=== PATIENT | female | born 1955 | race African-American/Black ===

== ENCOUNTER 2017-08-31 08:03 | Outpatient (CLI) | payer SELFPAY ==
--- NOTE | 2017-09-05 09:22 | MMO ---
BILATERAL SCREENING MAMMOGRAM: Date: 08/31/17 HISTORY: 62-year-old female. Routine screening mammography. COMPARISON: 07/29/15, 07/02/14, 06/22/13. TECHNIQUE: CC and MLO views of both breasts are submitted for interpretation. This patient's mammogram was reviewed with the assistance of computer-aided detection. FINDINGS: The breasts are composed of scattered fibroglandular tissue. Bilaterally, no suspicious dominant mass , architectural distortion, or suspicious calcifications. Bilateral benign-appearing calcifications a re present. IMPRESSION: BIRADS 2: Benign Finding(s) RECOMMENDATION: Annual mammogram. POS: ANASTASIYA
== END 2017-08-31 08:04 | disposition home or self-care (01) ==
LOC: SCSMAMMO 08:03
PROVIDERS: ATTEND Family Medicine
DX: Z12.31 Encounter for screening mammogram for malignant neoplasm of breast (principal)
CPT/HCPCS: 77067

== ENCOUNTER 2019-06-21 09:34 | Emergency (ER) | payer MEDICARE ==
[2019-06-21] MEDS ORDERED: Famotidine 20 MG TAB ONE (10:32)
[2019-06-21] MEDS ORDERED: diphenhydrAMINE 25 MG CAP ONE (10:32)
[2019-06-21] MEDS ORDERED: predniSONE 20 MG TAB ONE (10:32)
== END 2019-06-21 11:28 | disposition home or self-care (01) ==
LOC: ERS 09:34
DX: M79.89 Other specified soft tissue disorders (principal); R22.0 Localized swelling, mass and lump, head; T44.7X5A Adverse effect of beta-adrenoreceptor antagonists, initial encounter; I10 Essential (primary) hypertension; Z79.899 Other long term (current) drug therapy
CPT/HCPCS: 99283; J7512; Q0163

== ENCOUNTER 2019-11-29 10:00 | Outpatient (CLI) | payer MEDICARE ==
--- NOTE | 2019-11-29 12:59 | MMO ---
Bilateral MAMMO Bilat Screen [facility]DI[facility]N. CLINICAL HISTORY: Patient is 64 years old and is seen for screening. The patient has the following family history of breast cancer: sister, at age 58. The patient has no personal history of cancer. VIEWS: The views performed were: bilateral craniocaudal with tomosynthesis and bilateral mediolateral oblique with tomosynthesis. FILMS COMPARED: The present examination has been compared to prior imaging studies performed at [facility] on 06/21/2012, 06/22/2013, 07/02/2014 and 07/29/2015. This study has been interpreted with the assistance of computer-aided detection. MAMMOGRAM FINDINGS: There are scattered fibroglandular densities. There are stable benign appearing calcifications seen in both breasts. There are no suspicious masses, suspicious calcifications, or new areas of architectural distortion. IMPRESSION: THERE IS NO MAMMOGRAPHIC EVIDENCE OF MALIGNANCY. A ROUTINE FOLLOW-UP MAMMOGRAM IN 1 YEAR IS RECOMMENDED. THE RESULTS OF THIS EXAM WERE SENT TO THE PATIENT. ACR BI-RADS Category 2 - Benign finding MAMMOGRAPHY NOTE: 1. A negative mammogram report should not delay a biopsy if a dominant of clinically suspicious mass is present. 2. Approximately 10% to 15% of breast cancers are not detected by mammography. 3. Adenosis and dense breasts may obscure an underlying neoplasm. Reported by: ROB ALEMAN MD Electonically Signed: [id number]
--- NOTE | 2019-11-29 13:16 | BD ---
DEXA BONE DENSITY STUDY: HISTORY: Postmenopausal. FINDINGS: Lumbar Spine: BMD (g/cm2) L1 1.025 T-Score: +0.3 L2 1.103 T-Score: +0.7 L3 1.048 T-Score: -0.3 L4 1.194 T-Score: +1.2 L1-L4 1.098 T-Score: +0.5 Femoral Neck: 0.749 T-Score: -0.9 Total Femur: 1.047 T-Score: +0.9 Impression: Normal bone mineral density of the left femoral neck and lumbar spine. POS: SAAD
== END 2019-11-29 10:01 | disposition home or self-care (01) ==
LOC: BICMAMMO 10:00
PROVIDERS: ATTEND Family Medicine
DX: Z12.31 Encounter for screening mammogram for malignant neoplasm of breast (principal); Z13.820 Encounter for screening for osteoporosis; Z78.0 Asymptomatic menopausal state; Z80.3 Family history of malignant neoplasm of breast
CPT/HCPCS: 77063; 77067; 77080

== ENCOUNTER 2019-12-20 05:41 | Outpatient (CLI) | payer MEDICARE, OTHER ==
[2019-12-20 18:13] LABS: Hemoglobin 13.2 g/dL (12.0-16.0); Mean Corpuscular HGB CONC 32.6 g/dL (32.0-36.0); Mean Corpuscular Hemoglobin 30.2 pg (27.0-31.0); Mean Corpuscular Volume 92.8 fL (78.0-98.0); Mean Platelet Volume 8.4 fL (7.4-10.4); Platelet Count 320 thou/uL (130-400); RBC Distribution Width 14.5 % (11.5-14.5); Red Blood Cell (RBC) Count 4.35 mill/uL (4.20-5.40); White Blood Cell (WBC) Count 10.1 thou/uL (4.8-10.8)
[2019-12-21 14:12] LABS: SARS-CoV-2 MS2 Positive; SARS-CoV-2 N Gene Negative; SARS-CoV-2 S Gene Negative; SARS-CoV-2 orf1ab Negative
--- NOTE | 2019-12-24 10:11 | EKG ---
Test Reason : FOR Blood Pressure : / mmHG Vent. Rate : 064 BPM Atrial Rate : 064 BPM P-R Int : 154 ms QRS Dur : 096 ms QT Int : 404 ms P-R-T Axes : 041 -17 020 degrees QTc Int : 416 ms Normal sinus rhythm Normal ECG No previous ECGs available Confirmed by TOM ARAMBULA (2) on 12/24/2019 10:11:17 AM Referred By: ELIZABET Confirmed By:TOM ARAMBULA
== END 2019-12-20 05:42 | disposition home or self-care (01) ==
LOC: LABBT 05:41
PROVIDERS: ATTEND Obstetrics & Gynecology
DX: Z01.818 Encounter for other preprocedural examination (principal); Z11.59 Encounter for screening for other viral diseases; N95.0 Postmenopausal bleeding
CPT/HCPCS: 85027; 93005; U0003; 87635; 93010

== ENCOUNTER 2019-12-25 06:05 | Day surgery (SDC) | payer MEDICARE ==
[2019-12-19 10:48] VITALS: BMI 37.5
[2019-12-25] MEDS ORDERED: Midazolam HCl 2 mg/2 ml Vial ONE (06:19)
[2019-12-25] MEDS ORDERED: Fentanyl 250 MCG/5 ML VIAL ONE (06:19)
[2019-12-25] MEDS ORDERED: Famotidine/PF 20 mg/2ml Vial ONE ×2 (06:20→06:24)
[2019-12-25] MEDS ORDERED: CeleCOXIB 100 MG CAP ONE (06:24)
[2019-12-25] MEDS ORDERED: Gabapentin 300 MG CAP ONE (06:24)
[2019-12-25] MEDS ORDERED: Bupivacaine PF 0.5% 30 ML VIAL ONE (06:43)
[2019-12-25] MEDS ORDERED: Lidocaine 1% w/Epinephrine 1:100K 20 ML VIAL ONE (06:43)
--- NOTE | 2019-12-25 06:51 | HP ---
REASON FOR ADMISSION: Postmenopausal bleeding with leiomyoma uteri, scheduled for BSO. HISTORY OF PRESENT ILLNESS: Ms. Jensen is a 64-year-old, 5, para 3, AB2, x3 with postmenopausal bleeding, thickened endometrium endometrium. Ultrasound revealed a uterus with approximately 550 mL total volume with multiple leiomyoma uteri. She desires definitive surgical management. 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 Negative Pap, negative EMB. MEDICAL HISTORY: Significant for PAST SURGICAL HISTORY: None. MEDICATIONS: 1. Amlodipine. 2. Losartan. 3. Metoprolol. 4. Pravastatin. 5. Provera. 6. . SOCIAL HISTORY: Denies tobacco, alcohol, or IV drug abuse. REVIEW OF SYSTEMS: Noncontributory. PHYSICAL EXAMINATION: GENERAL: Black female, 5 feet 3 inches, weight 194, BMI 34.4. Blood pressure 130/86, pulse , and temperature 98.8 HEENT: Within normal limits. LUNGS: Clear to auscultation bilaterally. HEART: Regular rhythm. BREASTS: No masses bilaterally. ABDOMEN: Soft, nontender. No rebound or guarding. Vulva without lesions. Vagina without discharge. Cervix, parous. Uterus, anteverted, 10-week size. Adnexa, no masses bilaterally. EXTREMITIES: Without clubbing, cyanosis, or edema. LABORATORY DATA: Pap negative postmenopausal, no atypia. IMPRESSION: Postmenopausal bleeding with multiple leiomyoma uteri. PLAN: Total laparoscopic hysterectomy, bilateral salpingo-oophorectomy, GelPOINT bag retrieval. We will administer appropriate antibiotic and DVT prophylaxis on 12/25/2019. Job ID: [id number]
[2019-12-25] MEDS ORDERED: cloNIDine 0.1 MG TAB PO PRN (09:35)
[2019-12-25] MEDS ORDERED: Simethicone Chewable 80 MG TAB PO PRN (09:35)
[2019-12-25] MEDS ORDERED: Morphine 4 MG/ML VIAL SLOW IVP PRN (09:35)
[2019-12-25] MEDS ORDERED: Ondansetron PF 4 MG/2 ML Vial IVP PRN (09:35)
[2019-12-25] MEDS ORDERED: traMADol HCl 50 MG TAB PO PRN (09:35)
[2019-12-25] MEDS ORDERED: HYDROcodone/Acetaminophen 5/325 mg Tablet PO PRN ×2 (09:35)
[2019-12-25] MEDS ORDERED: Promethazine HCl 25 MG/ML VIAL IM PRN ×2 (09:35→09:55)
[2019-12-25] MEDS ORDERED: diphenhydrAMINE 25 MG CAP PO PRN (09:35)
[2019-12-25] MEDS ORDERED: Zolpidem Tartrate 5 MG TAB PO PRN (09:35)
[2019-12-25] MEDS ORDERED: Promethazine HCl 25 MG/ML VIAL SLOW IVP PRN (09:55)
[2019-12-25] MEDS ORDERED: Ondansetron HCl/PF 4 MG/2 ML Vial IVP PRN (09:55)
--- NOTE | 2019-12-25 10:31 | OP ---
DATE OF PROCEDURE: 12/25/2019 PREOPERATIVE DIAGNOSIS: Large uterine fibroids with postmenopausal bleeding, benign endometrial biopsy. POSTOPERATIVE DIAGNOSIS: Large uterine fibroids with postmenopausal bleeding, benign endometrial biopsy. PROCEDURES PERFORMED: Total laparoscopic hysterectomy with bilateral salpingo-oophorectomy, intracorporeal GelPOINT retrieval bag morcellation. SALES AGENT PROTECTIVE SERVICE: Precious Watson PA-C ANESTHESIA: General endotracheal. ESTIMATED BLOOD LOSS: 150 mL. COMPLICATIONS: None. DRAINS: Jain to gravity with approximately 600 mL clear urine. MEDICATIONS: 2 g Ancef preincision. DVT PROPHYLAXIS: SCDs. OPERATIVE FINDINGS: 1. Approximately 14 to 16-week size uterus with multiple leiomyoma uteri. 2. Normal-appearing tubes and ovaries bilaterally with dense adhesions of the right ovary to the posterior aspect of the uterus. 3. Hemostasis, clear urine. COUNTS: Correct at the end of the procedure. DISPOSITION: Recovery room in good condition. DESCRIPTION OF PROCEDURE: After obtaining appropriate informed consent, the patient was taken to the operating room, where general endotracheal anesthesia was achieved without difficulty. She was prepped and draped in dorsal lithotomy in [facility]. Sliding speculum was placed in vagina. Cervix was identified and grasped with single-toothed tenaculum. Uterus sounded to 14 cm. Jain catheter had been placed with clear urine 450 mL drained. This was hooked up to a 60 mL syringe. ILA manipulator with a 12 cm obturator and a 3.5 cm vaginal creasing machine operator was placed without difficulty. Tenaculum and speculum were removed. Digital Marketing Associate changed his gloves, turned attention to abdominal portion of the procedure. A 5 mL of Marcaine injected 2.5 to 3 cm above the umbilicus, and a 12 mm skin incision was made. The fat was dissected off the fascia bluntly with the dicer machine operator's fingers, and the Veress needle was introduced in the abdominal cavity. Insufflation was carried out with carbon dioxide at max pressure of 15, volume approximately 3.5 L. Once this was done, a 12 mm non-cutting trocar was placed into the abdominal cavity. The operative findings were noted. The patient was placed in Trendelenburg position. The right and left lateral da Benjy ports were placed lateral to the epigastric vessels, and an business office assistant 11 mm port was placed in the right upper quadrant. The umbilical trocar was removed, and the fascial incision at this level was extended to approximately 2.5 to 3 cm in length. The small Mark O was placed inside the GelPOINT was placed over this for pneumoperitoneum and maintained insufflation after placing a retrieval bag in the patient's left upper quadrant with the dicer machine operator's fingers. Da Benjy robot was docked with monopolar scissors in the right hand and bipolar fenestrated forceps in the left. The infundibulopelvic ligament and ureter on the left were identified. The IP was coagulated, transected, carried through the broad and the round down to the level of internal cervical os. The vesicouterine peritoneum was incised sharply anteriorly and dissected off the lower uterine segment, cervix, and upper vagina, pushing the bladder down as well. The bladder was backfilled and easily identified. Skeletonization of the uterine vessels which were significant on the left was carried out. These were coagulated and transected down to the level of the vaginal apex. Attention was turned to the patient's right. The fallopian tube was noted to be densely stuck almost down to the level of the uterosacral ligament on the right, and this was taken down using monopolar scissors with the ureter noted to be well lateral. Once this was freed, the round ligament was coagulated and transected. Coming back through the broad ligament to the infundibulopelvic, which was coagulated and transected, then opening the broad ligament, uterine vessels were skeletonized and coagulated. After completing the incision of the vesicouterine peritoneal fold and dissecting the bladder off the cervix and upper vagina, skeletonization, coagulation, and transection of the uterine vessels were carried down all the way to the level of the upper vagina. The vagina was entered at 12 to 3 and 12 to 9, then from 3 to 6 and from 9 to 6 amputating the specimen. Balloon was pulled down on the 12 cm obturator on the ILA, and the uterus was placed in the upper abdomen. Pneumoperitoneum was maintained by taking the balloon off the cuff of the ILA and inserting it into the vagina. Hemostasis was achieved using bipolar cautery around the cuff. Bladder was backfilled and well identified. The cuff was closed using a running continuous 2-0 PDS Stratafix running from right to left and then back to right in a 2-layer closure technique. Good hemostasis was noted throughout. Suction irrigation was carried out. Good hemostasis was noted in all surgical pedicles. Tisseel was applied across all surgical pedicles. The retrieval bag was pulled into the pelvis, and the stay sutures were removed. The uterine specimen was put into the retrieval bag, and the string was grasped and pulled out to the GelPOINT. At this point in time, the da Benjy instruments were removed and the da Benjy was undocked. The patient was leveled out. The dicer machine operator changed his gloves, and rescrubbed in. The retrieval bag was pulled out to the mouth of the small Mark O with the uterus noted to be inside. The uterus was elevated using Alyssia thyroid clamps and using an 11 blade serial morcellation, removed the entire specimen without trauma to the underlying viscera. Once this was done, the Mark O was removed. The trocars had already been removed. The fascia at the level of the small Mark O just above the umbilicus was grasped along its margins and closed using 0 Vicryl on a UR5 needle. Skin was reapproximated x4 using 4-0 Monocryl and Dermabond. Vagina inspected, noted to be dry. Clear urine noted. The patient was awakened, extubated, and taken to recovery room in good condition. Job ID: [id number]
[2019-12-25] MEDS ORDERED: PROPOFOL 200 MG/20 ML VIAL ONE (12:38)
[2019-12-25] MEDS ORDERED: Dexamethasone 20 MG/5 ML VIAL ONE (12:38)
[2019-12-25] MEDS ORDERED: Glycopyrrolate 0.2 MG/ML 5 ML SYRINGE ONE (12:38)
[2019-12-25] MEDS ORDERED: Rocuronium Bromide 10 MG/ML (10ML VIAL) ONE (12:38)
[2019-12-25] MEDS ORDERED: Lidocaine 1% PF 5 ML VIAL ONE (12:38)
[2019-12-25] MEDS ORDERED: EPHEDRINE 25 MG/5 ML SYRINGE ONE (12:38)
[2019-12-25] MEDS ORDERED: Ondansetron PF 4 MG/2 ML Vial ONE (12:38)
[2019-12-25] MEDS: Ketorolac Tromethamine 30 MG/ML VIAL IVP SCH ×2 (13:21→18:14)
[2019-12-25] MEDS: Sodium Chloride 0.9% 1,000 ML IV SCH ×2 (13:24→18:15)
[2019-12-25] MEDS ORDERED: Atorvastatin Calcium 10 MG TAB PO SCH (21:00)
[2019-12-25] MEDS: Docusate 100 MG CAP PO SCH (21:40)
[2019-12-25] MEDS: Metoprolol Tartrate 100 MG TAB PO SCH (21:40)
[2019-12-26] MEDS: Ketorolac Tromethamine 30 MG/ML VIAL IVP SCH (00:41)
[2019-12-26] MEDS: Sodium Chloride 0.9% 1,000 ML IV SCH ×2 (05:30→08:26)
[2019-12-26] MEDS ORDERED: Ibuprofen 600 MG TAB PO SCH (06:00)
[2019-12-26 06:28] LABS: Hemoglobin 10.9 g/dL (12.0-16.0); Mean Corpuscular HGB CONC 33.9 g/dL (32.0-36.0); Mean Corpuscular Hemoglobin 31.3 pg (27.0-31.0); Mean Corpuscular Volume 92.3 fL (78.0-98.0); Mean Platelet Volume 7.6 fL (7.4-10.4); Platelet Count 230 thou/uL (130-400); RBC Distribution Width 14.1 % (11.5-14.5); Red Blood Cell (RBC) Count 3.49 mill/uL (4.20-5.40); White Blood Cell (WBC) Count 12.8 thou/uL (4.8-10.8)
[2019-12-26 08:06] VITALS: BP 132/64; TEMP 98.7
[2019-12-26] MEDS: Metoprolol Tartrate 100 MG TAB PO SCH (08:25)
[2019-12-26] MEDS: Docusate 100 MG CAP PO SCH (08:25)
--- NOTE | 2019-12-26 08:50 | DIS ---
DATE OF ADMISSION: 12/25/2019 DATE OF DISCHARGE: 12/26/2019 PRIMARY HOSPITAL PROCEDURE: Total laparoscopic hysterectomy with bilateral salpingo-oophorectomy and intracorporeal retrieval by morselization. SUMMARY OF HOSPITAL COURSE: The patient underwent the aforementioned procedure on the morning of 12/24. EBL was approximately 150 mL. Postoperatively, the patient did well with good urine output, voiding x4, tolerating p.o. and ambulating. This morning her temperature is 97.9, pulse 85, respirations 18, blood pressure 148/92. The patient has had occasional episodes of elevated blood pressures, treated with clonidine. She is on 3 antihypertensive at home. Temp max was 99.2. This resolved without Tylenol or other antipyretics. Hematocrit went from 40% preoperatively to 32% postoperatively, hydrated. PHYSICAL EXAMINATION: GENERAL: Exam reveals a black female, resting comfortably. No complaints. States her pain is much less than she would have anticipated. LUNGS: Clear to auscultation bilaterally. HEART: Regular rate and rhythm. ABDOMEN: Soft, nontender. Incisions intact. Perineum dry. EXTREMITIES: No clubbing, cyanosis, or edema. IMPRESSION: Doing well status post total abdominal hysterectomy with bilateral salpingo-oophorectomy. Pathology pending. PLAN: Discharge home. The patient has [place] prescribed preoperatively. She is to discontinue her Provera, which she was taking preoperatively and continue all of her other medications. She has scheduled followup at [facility] in 2 weeks and 6 weeks. We will follow up pathology. Job ID: [id number]
[2019-12-26] MEDS ORDERED: Amlodipine 10 MG TAB PO SCH (09:00)
[2019-12-26] MEDS ORDERED: Losartan 25 MG TAB PO SCH (09:00)
[2019-12-26] MEDS ORDERED: Cholecalciferol 1,000 UNITS (25 MCG) TAB PO SCH (09:00)
== END 2019-12-26 10:45 | disposition home or self-care (01) ==
LOC: SDC 06:05 → 3SE 09:31 → SDC 12-26 10:45
PROVIDERS: ATTEND Obstetrics & Gynecology
PROC: 0UT94ZZ Resection of Uterus, Percutaneous Endoscopic Approach (ICD-10-PCS; principal; 2019-12-25)
PROC: 0UT24ZZ Resection of Bilateral Ovaries, Percutaneous Endoscopic Approach (ICD-10-PCS; 2019-12-25)
PROC: 0UT74ZZ Resection of Bilateral Fallopian Tubes, Percutaneous Endoscopic Approach (ICD-10-PCS; 2019-12-25)
DX: D25.9 Leiomyoma of uterus, unspecified (principal); N73.6 Female pelvic peritoneal adhesions (postinfective); N83.312 Acquired atrophy of left ovary; N83.311 Acquired atrophy of right ovary; N95.0 Postmenopausal bleeding; Z79.899 Other long term (current) drug therapy; Z88.8 Allergy status to other drugs, medicaments and biological substances
CPT/HCPCS: 36415; 85027; 86850; 86900; 86901; 88307; J0690; J1100; J1885; J2001; J2250; J2405; J2704; J3010; S0020; S0028

== ENCOUNTER 2020-03-12 10:50 | Outpatient (CLI) | payer MEDICARE ==
--- NOTE | 2020-03-12 12:03 | RAD ---
LEFT FOOT 3 VIEWS: Date: 03/12/2020 HISTORY: Left foot pain, most prominent in the fifth metatarsal. FINDINGS/IMPRESSION: No fracture, dislocation, or bony destruction seen. There is a small plantar calcaneal spur. There ar e mild degenerative changes in the first MTP joint. POS: AH
== END 2020-03-12 10:51 | disposition home or self-care (01) ==
LOC: BICRAD 10:50
PROVIDERS: ATTEND Family Medicine
DX: M79.672 Pain in left foot (principal); M19.072 Primary osteoarthritis, left ankle and foot; M77.32 Calcaneal spur, left foot

== ENCOUNTER 2022-08-03 10:45 | Outpatient (CLI) | payer MEDICARE | END 2022-08-03 10:46 | disposition home or self-care (01) | LOC: BICMAMMO 10:45 | PROVIDERS: ATTEND Family Medicine | DX: Z12.31 Encounter for screening mammogram for malignant neoplasm of breast (principal); Z80.3 Family history of malignant neoplasm of breast | CPT/HCPCS: 77063; 77067 ==

== ENCOUNTER 2023-09-09 10:14 | Outpatient (CLI) | payer MEDICARE | END 2023-09-09 10:15 | disposition home or self-care (01) | LOC: BICMAMMO 10:14 | PROVIDERS: ATTEND Family Medicine | DX: Z12.31 Encounter for screening mammogram for malignant neoplasm of breast (principal); M25.561 Pain in right knee; M25.562 Pain in left knee; Z80.3 Family history of malignant neoplasm of breast | CPT/HCPCS: 77063; 77067 ==